=== PATIENT | female | born 1945 | race Caucasian/White ===

== ENCOUNTER 2016-11-25 18:00 | Emergency (ER) | payer OTHER ==
--- NOTE | ~2016-11-25 | CR72 ---
[facility] A Service of [facility] RADIOLOGY TEXT RESULTS PATIENT: LEONIDAS OLIVEIRA LOCATION: SED : 47 UNIT #: [id number] AGE: [address]: Kelby Parish MD SEX: F ORDER DR: [id number] [place] [id number] E MR#: [id number] Acc #: [id number] NAME: LEONIDAS OLIVEIRA : 1945 SEX: F STUDY DATE/TIME: 11/25/2016 18:17 UNIT: SED ROOM: STUDY DESCRIPTION: CR Chest Single View Portable Attending Physician: Kelby Parish M.D. Ordering Physician: Jared Dominique M.D. Primary Care Physician: Autumn Barrow A.P.R.N. MEDICAL IMAGING REPORT This report is preliminary unless electronic signature is present. EXAM Portable chest HISTORY Chest pain onset this morning. COMPARISONH 05/29/09 FINDINGS Portable view of the chest demonstrates no focal infiltrates or [id number]. Mild cardiomegaly and diffuse aortic atherosclerotic changes. No effusions. Osseous structures unremarkable. No visible pneumothorax. Overall no acute findings. Dictated by... Alyssa Chambers M.D. THIS IS AN ELECTRONICALLY VERIFIED REPORT Alyssa Chambers M.D. at 11/26/2016 10:05 AM KI/kassie TD: 11/26/2016 09:00 JOB #: [id number] MEDICAL IMAGING REPORT Page 1 of 1
--- NOTE | ~2016-11-25 | EKG ---
PATIENT: LEONIDAS OLIVEIRA UNIT #: [id number] Ventricular Rate: 91 BPM Atrial Rate: 91 BPM P-R Interval: 162 ms QRS Duration: 84 ms Q-T Interval: 388 ms QTC Calculation(Bezet): 477 ms P [place]: 52 degrees Calculated R [place]: -17 degrees Calculated T [place]: 49 degrees Diagnosis Line: Sinus rhythm with Premature atrial complexes Diagnosis Line: Prolonged QT Diagnosis Line: Abnormal ECG Diagnosis Line: When compared with ECG of 29-MAY-2009 18:32, Diagnosis Line: Nonspecific T wave abnormality no longer evident Diagnosis Line: in Anterior leads Diagnosis Line: Confirmed by DAVID ALVARES MD ([id number]) on 11/26/2016 Diagnosis Line: 11:12:20 PM INTERPRETING MD: DIA MONIQUE
[~2016-11-25 18:00] MED LIST: ADVAIR 5001 DISK W/D PO; ASTHMANEX; ATIVAN PO; CIPRO PO; ESTRACE PO; LASIX PO; NASONEX17 GM; PATANOL5 ML OP; PRILOSEC PO; PROZAC PO; PYRIDIUM PO; SPIRIVA18 MCG INH; SYNTHROID PO; TAMIFLU75 MG PO; XOPENEX1.25 MG/0. NEB; ZETIA PO
[2016-11-25] MEDS ORDERED: PROZAC40 MG DOB (18:02)
[2016-11-25] MEDS ORDERED: SYNTHROID112 MCG PO (18:02)
[2016-11-25] MEDS ORDERED: NEXIUM PO (18:02)
[2016-11-25] MEDS ORDERED: METFORMIN HCL500 M2 PO (18:03)
[2016-11-25] MEDS ORDERED: PRAVASTATIN SOD40 MG PO (18:03)
[2016-11-25] MEDS ORDERED: ATIVAN0.5 MG DOB (18:03)
[2016-11-25 18:22] LABS: POC - CKMB <1.0 ng/mL (0.0-7.9); POC - MYOGLOBIN 44.5 ng/mL (0.0-169.0); POC - TROPONIN <0.05 ng/mL (<=0.05)
[2016-11-25 18:22] LABS: BASOPHIL% 0.4 % (0-2.5); EOSINOPHIL# 0.3 X10e3 (0-0.7); EOSINOPHIL% 4.4 % (0.0-7.0); HEMATOCRIT 33.6 % (35.0-45.0); HEMOGLOBIN 11.2 gm/dL (12.0-16.0); LYMPHOCYTE# 1.8 X10e3 (1.0-3.5); LYMPHOCYTE% 23.3 % (17.0-45.0); MEAN CELL VOLUME 85.1 FL (83-96); MEAN CORPUSCULAR HEMOGLOBIN 28.3 PG (28-34); MEAN CORPUSCULAR HGB CONC 33.2 g/dL (30-36); MEAN PLATELET VOLUME 8.6 FL (6.5-11.5); MONOCYTE# 0.7 X10e3 (0-1.0); MONOCYTE% 9.3 % (3.0-12.0); NEUTROPHIL# 4.8 X10e3 (1.5-7.1); NEUTROPHIL% 62.6 % (40-75); PLATELET COUNT 244 X10e3 (140-420); RED BLOOD COUNT 3.95 X10e (3.90-5.30); RED CELL DISTRIBUTION WIDTH 14.6 % (11.0-15.5); WHITE BLOOD COUNT 7.6 X10e3 (4.0-10.5)
[2016-11-25 18:27] LABS: DIFF IND NO
[2016-11-25 18:38] LABS: ALBUMIN SERUM 3.9 g/dL (3.5-5.0); BILIRUBIN, DIRECT 0.1 mg/dL (0.0-0.2); BILIRUBIN,INDIRECT 0.4 mg/dL (0.0-0.9); BILIRUBIN,TOTAL 0.5 mg/dL (0.2-2.0); BUN/CREATININE RATIO 15.45; CALCIUM SERUM 9.1 mg/dL (8.4-10.2); CREATININE SERUM 1.1 mg/dL (0.6-1.4); GLOM FILT RATE Estimated 50.8 mL/min (>60); POTASSIUM 3.3 mmol/L (3.5-5.1); PROTEIN TOTAL SERUM 6.9 g/dL (6.0-8.3)
[2016-11-25 20:09] LABS: POC - CKMB <1.0 ng/mL (0.0-7.9); POC - MYOGLOBIN 49.9 ng/mL (0.0-169.0); POC - TROPONIN <0.05 ng/mL (<=0.05)
== END 2016-11-25 23:21 ==
LOC: SED 18:00
PROVIDERS: Emergency Medicine
DX: R07.89 Other chest pain (principal); E11.65 Type 2 diabetes mellitus with hyperglycemia; F41.9 Anxiety disorder, unspecified; Z90.710 Acquired absence of both cervix and uterus; Z88.2 Allergy status to sulfonamides
CPT/HCPCS: 36415; 71010; 80048; 80076; 82553; 83874; 84484; 85025; 93005; 99285